=== PATIENT | female | born 1970 | race Caucasian/White ===

== ENCOUNTER 2019-05-27 11:09 | Emergency (ER) | payer MEDICAID ==
[2019-05-27 11:18] VITALS: Wt 87.7 kg
[2019-05-27 11:36] LABS: BASOPHILS 0.5 % (0-2); EOSINOPHILS 1.2 % (0-7); HEMOGLOBIN 13.6 g/dL (12-16); IMMATURE GRANULOCYTES 0.2 % (0-5); LYMPHOCYTES 40.6 % (15-50); MCH 28.6 pg (26.0-34.0); MCHC 33.2 g/dL (31.0-37.0); MCV 86.1 fL (80.0-100.0); MEAN PLATELET VOLUME 10.2 fL (7.4-10.4); MONOCYTES 5.6 % (2-11); NEUTROPHILS 51.9 % (40-80); PLATELET COUNT 217 10x3/uL (130-400); RBC 4.76 10x6/uL (4.00-5.40); RDW 12.6 % (11.5-14.5); WBC 5.9 10x3/uL (4.8-10.8)
[2019-05-27 11:47] LABS: CALC OSMOLALITY 281 mosm/kg (275-300); CALCIUM 9.4 mg/dL (8.5-10.1); CARBON DIOXIDE 25.6 mmol/L (21.0-32.0); CHLORIDE - SERUM 106 mmol/L (98-107); GLUCOSE 108 mg/dL (74-106); POTASSIUM - SERUM 3.8 mmol/L (3.5-5.1); SODIUM 140 mmol/L (136-145); UREA NITROGEN 17 mg/dL (7-18); eGFR NON AFRICAN AMERICAN 63 mL/min (90-120)
[2019-05-27 11:55] LABS: ALBUMIN 3.8 g/dL (3.4-5.0); ALKALINE PHOSPHATASE 64 U/L (30-120); ALT (SGPT) 20 U/L (10-68); AMYLASE - SERUM 25 U/L (25-115); BILIRUBIN - TOTAL 0.28 mg/dL (0.2-1.3); LIPASE 75 U/L (73-393); PROTEIN - SERUM 7.1 g/dL (6.4-8.2)
[2019-05-27 11:56] LABS: TROPONIN-I < 0.017 ng/mL (0.000-0.060)
[2019-05-27 15:43] LABS: BILIRUBIN NEGATIVE (NEGATIVE); GLUCOSE NEGATIVE (NEGATIVE); KETONE NEGATIVE (NEGATIVE); NITRITE NEGATIVE (NEGATIVE); SPECIFIC GRAVITY 1.005 (1.005-1.020); UROBILINOGEN NORMAL (NORMAL)
[2019-05-27] MEDS ORDERED: REGLAN5 MG PO (16:18)
[2019-05-27 16:58] VITALS: BP 102/58
== END 2019-05-27 16:58 | disposition home or self-care (01) ==
LOC: D.ER 11:09
PROVIDERS: Family Medicine
DX: A08.4 Viral intestinal infection, unspecified (principal); R11.2 Nausea with vomiting, unspecified; I10 Essential (primary) hypertension; K21.9 Gastro-esophageal reflux disease without esophagitis

== ENCOUNTER 2019-12-06 15:13 | Emergency (ER) | payer MEDICAID ==
[~2019-12-06] VITALS: Ht 175.3 cm; Wt 85.9 kg
[~2019-12-06 15:13] MED LIST: REGLAN5 MG PO
[2019-12-06 15:40] VITALS: Ht 175.3 cm; Wt 85.9 kg
[2019-12-06] MEDS ORDERED: TOPAMAX50 MG PO (15:45)
[2019-12-06] MEDS ORDERED: LISINOPRIL10 MG PO (15:45)
[2019-12-06] MEDS ORDERED: VISTARIL25 MG PO (15:46)
[2019-12-06] MEDS ORDERED: SKELAXIN800 MG PO (15:46)
[2019-12-06] MEDS ORDERED: CYMBALTA60 MG PO (15:46)
[2019-12-06] MEDS ORDERED: OMEPRAZOLE40 MG PO (15:46)
[2019-12-06] MEDS ORDERED: SINGULAIR10 MG PO (15:47)
[2019-12-06] MEDS ORDERED: LIPITOR10 MG PO (15:47)
[2019-12-06 18:01] VITALS: BP 108/64
== END 2019-12-06 18:02 | disposition home or self-care (01) ==
LOC: D.ER 15:13
DX: M54.9 Dorsalgia, unspecified (principal); G89.29 Other chronic pain; I10 Essential (primary) hypertension; K21.9 Gastro-esophageal reflux disease without esophagitis; Z72.0 Tobacco use

== ENCOUNTER 2020-08-14 09:45 | Day surgery (SDC) | payer BC ==
[~2020-08-14] VITALS: Ht 175.3 cm; Wt 87.1 kg
--- NOTE | ~2020-08-14 | OP ---
PATIENT NAME: ALBERT MELVIN MEDICAL RECORD: [id number] :72 LOCATION:[facility] ADMISSION DATE: SURGEON: JAYCOB GONZALEZ DATE OF OPERATION: 08/14/2020 SURGEON: Jaycob Gonzalez DPM PREOPERATIVE DIAGNOSIS: Hammertoe, second toe, right foot. POSTOPERATIVE DIAGNOSIS: Hammertoe, second toe, right foot. PROCEDURE: Arthrodesis, proximal interphalangeal joint, second toe, right foot. ANESTHESIA: Local with monitored anesthesia care. HEMOSTASIS: Pneumatic ankle tourniquet inflated to 250 mmHg. ESTIMATED BLOOD LOSS: Minimal. MATERIALS: One 2.0 [employer] screw, 3-0 Vicryl, 4-0 nylon. INJECTABLES: 20 mL of 50:50 mixture of 1.0% lidocaine plain and 0.25% Marcaine plain. The patient has a longstanding history of pain associated with a hammertoe of the second toe of the right foot. She fractured this toe back in the wintertime and has aggravated the deformity. We have discussed the risks and benefits of the procedure. Complications were reviewed. All questions were answered. She was appropriately consented for the above-mentioned procedure. DESCRIPTION OF PROCEDURE: The patient was brought in the operating room and placed on the operating table in a supine position. A timeout was called with Dr. Gonzalez who identified the patient, the surgical site, and the surgery to be performed. Once appropriate anesthesia was obtained, the foot was prepped and draped in the usual aseptic manner. The pneumatic ankle tourniquet was inflated to 250 mmHg around the well-padded right ankle. Attention was directed to the second toe of the right foot where a 4-cm linear incision was made. This incision was carried deep through soft tissue with care being taken to retract all vital neurovascular structures. All bleeders were cauterized along the way. The extensor tendon was then transected from medial to lateral at the level of the proximal interphalangeal joint. All soft tissue attachments were then freed from the head of the proximal phalanx. Next, utilizing a sagittal saw, the head of the proximal phalanx was removed. All cartilage was then removed from the base of the middle phalanx utilizing a curette and rongeur. Next, utilizing [employer]'s recommended technique, one 26 mm 2.0 cannulated screw was placed across the proximal interphalangeal joint. Placement of the screw was confirmed via fluoroscopy. The surgical site was then irrigated with copious amounts of normal sterile saline via bulb syringe. The periosteum was reapproximated and coapted using 3-0 Vicryl. The extensor OPERATIVE REPORT [id number] ALBERT MELVIN tendon was reapproximated and coapted using 3-0 Vicryl. The subQ was reapproximated and coapted using 3-0 Vicryl on the toe. The skin was reapproximated and coapted utilizing 4-0 nylon. A dressing consisting of Adaptic, Xeroform, 4 x 4's, Kerlix, and Coban was applied to the right foot. The pneumatic ankle tourniquet was deflated and capillary refill time was immediate to all digits of the right foot. The patient tolerated the procedure and anesthesia well. She left the operating room with vital signs stable and capillary refill time intact. The patient will be discharged home with instructions to ice and elevate the right foot. She has a boot and a postop shoe to further help offload the area. She was provided with a prescription for Percocet and Phenergan. There were no difficulties with this procedure. We will follow up with her in 1 week. TRANSINT:[id number] Voice Confirmation ID: [id number] DOCUMENT ID: [id number] JAYCOB GONZALEZ CC: [id number] DICTATION DATE: 08/14/20 1436 [employer] DIRECTOR: 08/14/20 1719 [facility] 08/14/20 [id number] [place] [address]
[~2020-08-14 09:45] MED LIST changes: +ALBUTEROL SULF8.5 GM INH; +COMBIVENT RESPIM4 GM INH; +CYMBALTA60 MG PO; +LIPITOR10 MG PO; +LISINOPRIL10 MG PO; +MUCINEX600 MG PO; +OMEPRAZOLE40 MG PO; +PERCOCET 7.5/321 TAB PO; +SINGULAIR10 MG PO; +SKELAXIN800 MG PO; +TOPAMAX50 MG PO; +VALIUM5 MG PO; +VISTARIL25 MG PO
[2020-08-14 10:12] LABS: ANION GAP 9.5 mmol/L (8-16); CALCIUM 9.1 mg/dL (8.5-10.1); CARBON DIOXIDE 28.4 mmol/L (21.0-32.0); POTASSIUM - SERUM 3.9 mmol/L (3.5-5.1)
[2020-08-14 10:16] LABS: BASOPHILS 0.6 % (0-2); EOSINOPHILS 0.9 % (0-7); HEMATOCRIT 41.7 % (36.0-48.0); HEMOGLOBIN 13.8 g/dL (12-16); IMMATURE GRANULOCYTES 0.3 % (0-5); LYMPHOCYTE ABS# 2.73 10x3/uL (1.18-3.74); MCH 28.6 pg (26.0-34.0); MCHC 33.1 g/dL (31.0-37.0); MCV 86.3 fL (80.0-100.0); MEAN PLATELET VOLUME 10.4 fL (7.4-10.4); MONOCYTES 7.3 % (2-11); NEUTROPHIL ABS# 3.47 10x3/uL (1.56-6.13); NEUTROPHILS 50.9 % (40-80); PLATELET COUNT 256 10x3/uL (130-400); RBC 4.83 10x6/uL (4.00-5.40); WBC 6.8 10x3/uL (4.8-10.8)
[2020-08-14 11:14] VITALS: BP 101/60; Ht 175.3 cm; Wt 87.1 kg
--- NOTE | 2020-08-14 13:12 | NUR ---
[id number] X1 USED FOR THIS CASE. (0.9MM K-WIRE)
--- NOTE | 2020-08-14 15:03 | NUR ---
1440 IV REMOVED AND PRESSURE HELD. INSTRUCTIONS GIVEN.
== END 2020-08-14 15:00 | disposition home or self-care (01) ==
LOC: D.OPS 09:45
PROVIDERS: Anesthesiology; ATTEND Podiatrist
DX: M20.41 Other hammer toe(s) (acquired), right foot (principal)